=== PATIENT | female | born 1985 | race Caucasian/White ===

== ENCOUNTER → 2016-10-20 | Outpatient (CLI) | payer OTHER ==
--- NOTE | 2016-10-20 13:31 | MR ---
EXAMINATION TYPE: MR lumbar spine wo con DATE OF EXAM: 10/20/2016 11:40 AM COMPARISON: NONE HISTORY: low back pain, wraps around to rt hip TECHNIQUE: Multiplanar, multisequence images of the lumbar spine were acquired. L1-L2: Normal disc appearance without desiccation. No herniation, protrusion or disc bulging. No ca nal stenosis is present. Foramina are patent bilaterally. L2-L3: Normal disc appearance without desiccation. No herniation, protrusion or disc bulging. No ca nal stenosis is present. Foramina are patent bilaterally. L3-L4: Normal disc appearance without desiccation. No herniation, protrusion or disc bulging. No ca nal stenosis is present. Foramina are patent bilaterally. L4-L5: Normal disc appearance without desiccation. No herniation, protrusion or disc bulging. No ca nal stenosis is present. Foramina are patent bilaterally. L5-S1: Mild decreased signal and loss of height compatible with degenerative disc disease. Mild poste rocentral disc bulge. No herniation or central stenosis. Foramina are patent. Lumbar segments are intact. No paraspinal masses are identified. Conus medullaris has a normal appe arance. IMPRESSION: Mild disc desiccation and disc bulging at L5-S1.
== END | disposition home or self-care (01) ==
LOC: RADMRIMAIN 10:46
PROVIDERS: ATTEND Nurse Practitioner Women's Health
DX: M51.27 Other intervertebral disc displacement, lumbosacral region (principal); M79.2 Neuralgia and neuritis, unspecified
CPT/HCPCS: 72148

== ENCOUNTER → 2017-03-22 | Outpatient (CLI) | payer OTHER ==
--- NOTE | 2017-03-22 17:11 | NM ---
EXAMINATION TYPE: NM hepatobiliary w EF DATE OF EXAM: 03/22/2017 COMPARISON: NONE HISTORY: Right upper quadrant pain TECHNIQUE: After the intravenous administration of 5.11 mCi Tc 99m Mebrofenin hepatobiliary scintigra phy is performed. Immediate images post injection. FINDINGS: There is satisfactory initial accumulation of tracer by the liver. The gallbladder is visualized wit hin 10 minutes. The small bowel activity is noted within 42minutes. At one hour 8 ounces of oral en sure plus is given to mimic CCK and gallbladder ejection fraction is calculated at 38 %, in the bailee l range. Therefore there is no scintigraphic evidence of cystic or common bile duct obstruction to s uggest acute cholecystitis or gallbladder dyskinesia. IMPRESSION: Exam is within normal limits. Gallbladder ejection fraction at the level end of normal.
== END | disposition home or self-care (01) ==
LOC: RADNMMAIN 14:42
PROVIDERS: ATTEND Family Medicine
DX: R10.11 Right upper quadrant pain (principal)
CPT/HCPCS: 78226; A9537

== ENCOUNTER → 2017-05-10 | Outpatient (CLI) | payer BC, OTHER ==
[2017-05-10 15:22] LABS: HCT 38.5 % (34.0-46.0); HDW 2.25; HGB 13.1 gm/dL (11.4-16.0); MCH 30.9 pg (25.0-35.0); MCV 91.1 fL (80.0-100.0); Mean Platelet Volume 7.3; RBC 4.23 m/uL (3.80-5.40); RDW 12.6 % (11.5-15.5); WBC 5.6 k/uL (3.8-10.6)
[2017-05-10 16:00] LABS: ALT 21 U/L (9-52); AST 18 U/L (14-36); Alkaline Phosphatase 59 U/L (38-126); Anion Gap 12 mmol/L; Blood Urea Nitrogen 7 mg/dL (7-17); C Reactive Protein <5.0 mg/L (<10.0); Calcium 9.4 mg/dL (8.4-10.2); Carbon Dioxide 25 mmol/L (22-30); Chloride 105 mmol/L (98-107); Glucose 99 mg/dL (74-99); Non-African American GFR(MDRD) >60 (>60 ml/min/1.73 sqM); Potassium 3.9 mmol/L (3.5-5.1); Sodium 142 mmol/L (137-145); Total Bilirubin 0.4 mg/dL (0.2-1.3); Total Protein 6.9 g/dL (6.3-8.2)
[2017-05-10 16:15] LABS: Erythrocyte Sedimentation Rate 4 mm/hr (0-20)
[2017-05-10 20:46] LABS: Gliadin AB IgA, Deaminated NEGATIVE (NEGATIVE); Tis Transglutaminase IgA Unit <0.5 AI
[2017-05-10 20:51] LABS: Gliadin AB IgG, Deaminated NEGATIVE (NEGATIVE); Gliadin AB IgG, Unit <0.4 U/mL; Tis Transglutaminase IgG Unit <0.8 U/mL
== END | disposition home or self-care (01) ==
LOC: LABWHC1 14:47
PROVIDERS: ATTEND Internal Medicine Gastroenterology
DX: R19.4 Change in bowel habit (principal)
CPT/HCPCS: 36415; 80053; 83516; 85027; 85652; 86140

== ENCOUNTER 2017-05-24 09:12 | Day surgery (SDC) | payer BC, OTHER ==
[2017-05-22 16:59] VITALS: BMI 27.4
[~2017-05-24 09:12] MED LIST: LACTATED RINGERS 1,000 ML IV SCH
[2017-05-24 09:49] VITALS: RESP 16; TEMP 98.3
[2017-05-24] MEDS ORDERED: LIDOCAINE 1% 20 ML VIAL (10MG/ML) FOR IV START INTRADERMA ONE (09:50)
[2017-05-24] MEDS ORDERED: LIDOCAINE 1% INJ 10MG/ML (20 ML MDV) ONE (10:01)
[2017-05-24] MEDS ORDERED: PROPOFOL 10 MG/ML 20 ML VIAL IV ONE (10:01)
--- NOTE | 2017-05-24 11:09 | P.PCN ---
Date of Procedure: 05/24/17 Preoperative Diagnosis: Postoperative Diagnosis: Procedure(s) Performed: BRIEF HISTORY: Patient is a 32-year-old, pleasant, white female, scheduled for an upper endoscopy as a part of evaluation of intermittent epigastric and right upper quadrant abdominal pain for the last 1 year duration. Pain is almost on a daily basis and lasts for about 50 minutes and gradually resolves. She is hence scheduled for an upper endoscopy to evaluate further.. PROCEDURE PERFORMED: Esophagogastroduodenoscopy with biopsy. PREOPERATIVE DIAGNOSIS: Epigastric/right upper quadrant abdominal pain of one year duration. IV sedation per anesthesia. PROCEDURE: After informed consent was obtained, the patient was brought into the endoscopy unit. IV sedation was administered by Anesthesia under continuous monitoring. Initially the Olympus GIF-140 video endoscope was inserted into the mouth. Esophagus intubated without any difficulty. It was gradually advanced into the stomach and duodenum and carefully examined. The bulb and the second part of the duodenum appeared normal. The scope at this time was withdrawn to the stomach, adequately insufflated with air, and upon careful examination, mucosa of the antrum, had mild gastritis and biopsies were done from this area. The body, cardia and the fundus appeared normal. The scope was then withdrawn into the esophagus. The GE junction was located at 39 cm from the incisors. A 2 superficial erosions in the distal esophagus consistent with LA grade a reflux esophagitis. The rest of the esophagus appeared normal and the patient tolerated the procedure well. IMPRESSION: 1. Mild antral gastritis. 2. LA grade a reflux esophagitis. RECOMMENDATIONS: The findings of this examination were discussed with the patient as well as a family. She was advised to follow with the biopsy results. She'll be seen in the office in 3-4 weeks.. Implants: Indications for Procedure: Operative Findings: Description of Procedure:
[2017-05-24 11:10] VITALS: BP 115/66; PULSE 76
== END 2017-05-24 11:50 | disposition home or self-care (01) ==
LOC: ORWHC2ENDO 09:12
PROVIDERS: ATTEND Internal Medicine Gastroenterology
DX: K29.70 Gastritis, unspecified, without bleeding (principal); K21.0 Gastro-esophageal reflux disease with esophagitis; F17.200 Nicotine dependence, unspecified, uncomplicated; Z85.41 Personal history of malignant neoplasm of cervix uteri; Z79.899 Other long term (current) drug therapy
CPT/HCPCS: 81025; 88305; 43239; J2001; J2704

== ENCOUNTER 2018-05-06 06:00 | Day surgery (SDC) | payer BC ==
[2018-04-29 12:20] VITALS: BMI 26.5
--- NOTE | 2018-05-03 16:32 | P.HPOB ---
History of Present Illness H&P Date: 05/03/18 Chief Complaint: Menorrhagia Hanna is a 33-year-old female with very heavy menses. She is had heavy menses for a number of years but they have gotten significantly worse over the last 6-12 months. She relates that her bleeding is so bad that she often bleeds through tampons and a pad within 20 minutes. Ultrasound labs were obtained. She is interested in NovaSure. Risks and benefits of this procedure were discussed with the patient in detail including bleeding and infection as well as possible perforation need for other surgeries. We did offer is alternatives Mirena IUD but as she is a smoker over the age of 35 oral contraceptives would not be a very good choice. She has had her tubes tied and is therefore much more interested in a more permanent solution. She is therefore scheduled for D&C with hysteroscopy and NovaSure ablation. All questions are answered for her prior to proceeding to the operating room. Past Medical History Past Medical History: Cancer, Neurologic Disorder Additional Past Medical History / Comment(s): cervical ca, melanoma, hx palpitaions. hx migraines, diarrhea/constipation, History of Any Multi-Drug Resistant Organisms: None Reported Past Surgical History: Tubal Ligation Additional Past Surgical History / Comment(s): melonoma removed from cheek, LEEP /colposcopy, COLONOSCOPY, EGD Past Anesthesia/Blood Transfusion Reactions: No Reported Reaction Smoking Status: Current every day smoker - Past Family History Father Family Medical History: Cancer Additional Family Medical History / Comment(s): DAD IS AGE 62 Mother Family Medical History: Hypertension Medications and Allergies Home Medications Medication Instructions Recorded Confirmed Type No Known Home Medications 04/29/18 04/29/18 History Allergies Allergy/AdvReac Type Severity Reaction Status Date / Time No Known Allergies Allergy Verified 04/29/18 12:16 Exam Osteopathic Statement: *. No significant issues noted on an osteopathic structural exam other than those noted in the History and Physical/Consult. - OBG Physical Exam Breast: both: normal (no masses) Abdomen: bowel sounds normal, no diffuse tenderness, no bruit present, no guarding noted, no hepatomegaly, no splenomegaly, no mass Vulva: both: normal Vagina: normal moisture, no discharge Cervix: no lesion, no discharge Uterus: normal size, normal contour Adnexa: both: normal Anus/Rectum: normal perianal skin, no rectal mass, no hemorrhoids, heme negative
[~2018-05-06 06:00] MED LIST changes: +DEXAMETHASONE SOD PHOSPHATE 10 MG/ML 1 ML VIAL IV ONE; +HYDROmorphone 1 MG/ML 1 ML SYRINGE IVP PRN; +LIDOCAINE 1% 20 ML VIAL (10MG/ML) FOR IV START INTRADERMA PRN; +MIDAZOLAM 2 MG/2 ML VIAL IV PRN; +ONDANSETRON 4 MG/2 ML VIAL IVP ONE; +Pre Op ABX Message 1 EACH MISC MISCELLANE ONE; +SCOPOLAMINE 1.5MG/72HR PATCH TRANSDERM ONE
[2018-05-06] MEDS ORDERED: fentaNYL (PF) 50 MCG/ML 2 ML AMP ONE (07:26)
[2018-05-06] MEDS ORDERED: PROPOFOL 10 MG/ML 20 ML VIAL IV ONE (07:26)
[2018-05-06] MEDS ORDERED: LIDOCAINE 1% INJ 10MG/ML (20 ML MDV) ONE (07:26)
[2018-05-06] MEDS ORDERED: MIDAZOLAM 2 MG/2 ML VIAL ONE (07:26)
--- NOTE | 2018-05-06 07:52 | P.OP ---
Date of Procedure: 05/06/18 Preoperative Diagnosis: Menorrhagia Postoperative Diagnosis: Same Procedure(s) Performed: D&C with hysteroscopy and NovaSure ablation Anesthesia: EMY Surgeon: Vimal Shipman Estimated Blood Loss (ml): 3 Pathology: other (Uterine curettings) Condition: stable Disposition: same day Operative Findings: No gross pathology Description of Procedure: Patient was taken to the operating suite where a general anesthetic was found be adequate. She was prepped and draped in normal sterile fashion and placed in the dorsal lithotomy position. Initially a weighted speculum was inserted into the vagina and the anterior lip cervix identified and grasped with an Allis clamp. Cervix was then dilated and sounded to 8 cm. Once this was accomplished camera was inserted no gross pathology was noted therefore camera was removed and sharp curettings of endometrium were obtained. This tissue was collected and placed on Telfa then sent to pathology for evaluation. Once accomplished NovaSure systems inserted with length of 4 and a width of 4.5 the system was tested once it passes patency test, it was enabled. The burn lasted for 2 minutes. At the conclusion of the burn instrument was removed camera was reinserted with good burn noted. All instruments were then removed, sponge, lap , needle counts were all correct 2. Patient was then taken to the recovery room in stable and satisfactory condition. Plan - Discharge Summary New Discharge Prescriptions: New Ibuprofen [Motrin] 600 mg PO Q6HR PRN #30 tab PRN Reason: Pain Discharge Medication List Ibuprofen [Motrin] 600 mg PO Q6HR PRN #30 tab 05/06/18 [Rx] Follow up Appointment(s)/Referral(s): Vimal Shipman DO [Doctor of Osteopathic Medicine] - 2 Weeks Activity/Diet/Wound Care/Special Instructions: No heavy lifting, limit stairs and driving, and pelvic rest. If any high temperatures, heavy bleeding, or severe pain call my office Discharge Disposition: HOME SELF-CARE
[2018-05-06 08:06] VITALS: RESP 16; TEMP 97
[2018-05-06] MEDS ORDERED: KETOROLAC 30 MG/ML 1 ML VIAL IVP ONE (08:08)
[2018-05-06] MEDS: fentaNYL (PF) 50 MCG/ML 2 ML AMP IVP ONE ×2 (08:30→08:36)
[2018-05-06 09:17] VITALS: BP 104/66; PULSE 55
== END 2018-05-06 09:38 | disposition home or self-care (01) ==
LOC: OR 06:00
PROVIDERS: ATTEND Obstetrics & Gynecology
DX: N92.0 Excessive and frequent menstruation with regular cycle (principal); F17.210 Nicotine dependence, cigarettes, uncomplicated; Z85.41 Personal history of malignant neoplasm of cervix uteri; Z85.820 Personal history of malignant melanoma of skin; Z98.51 Tubal ligation status
CPT/HCPCS: 81025; 88305; 58563; J2250; J1100; J2405; J2001; J3010; J1885; J2704

== ENCOUNTER → 2018-05-23 | Outpatient (CLI) | payer BC ==
--- NOTE | 2018-05-23 09:07 | NM ---
Nuclear medicine hepatobiliary scan. HISTORY: Pain. DOSAGE: The patient received 8 ounces of ensure plus and 5.3 mCi of Technetium 99m Choletec. FINDINGS: There is normal hepatic extraction. The gallbladder is seen by 25 minutes. There is bilia ry to bowel clearance by 25 minutes. Ejection fraction is 63%. IMPRESSION: 1. Normal hepatobiliary exam
== END | disposition home or self-care (01) ==
LOC: RADNMMAIN 06:39
PROVIDERS: ATTEND Family Medicine
DX: R10.11 Right upper quadrant pain (principal)
CPT/HCPCS: 78226; A9537

== ENCOUNTER → 2019-03-10 | Outpatient (CLI) | payer BC ==
--- NOTE | 2019-03-10 12:05 | XR ---
Lumbosacral spine HISTORY: Low back pain 5 views of lumbosacral spine correlated to prior exam 10/04/2016 There is no significant interval change. No evident spondylolysis or spondylolisthesis. Lumbar verteb ral bodies show preserved height and bone mineralization. Loss of disc height again noted L5-S1, ther e is spondylosis at L4 and L5. Sclerosis of the posterior elements of L5-S1 compatible with facet art hropathy. IMPRESSION: Degenerative disc disease and facet arthropathy.
--- NOTE | 2019-03-10 12:49 | XR ---
Thoracic spine HISTORY: Pain 3 views of the thoracic spine Thoracic vertebral bodies show preserved height, alignment, and bone mineralization. Disc spaces are maintained. IMPRESSION: Normal thoracic spine.
== END | disposition home or self-care (01) ==
LOC: RADXRMAIN 10:17
PROVIDERS: ATTEND Family Medicine
DX: M51.37 Other intervertebral disc degeneration, lumbosacral region (principal); M46.97 Unspecified inflammatory spondylopathy, lumbosacral region
CPT/HCPCS: 72072; 72110

== ENCOUNTER → 2019-07-21 | Outpatient (CLI) | payer BC ==
--- NOTE | 2019-07-22 08:44 | XR ---
EXAMINATION TYPE: XR wrist complete RT DATE OF EXAM: 07/21/2019 COMPARISON: NONE HISTORY: Pain TECHNIQUE: Four views submitted. FINDINGS: The osseous structures are intact. The joint spaces are preserved and there is no acute fracture or dislocation. IMPRESSION: 1. No definite acute fracture or dislocation if symptoms persist, consider follow-up MRI.
--- NOTE | 2019-07-22 08:48 | XR ---
EXAMINATION TYPE: XR elbow complete RT DATE OF EXAM: 07/21/2019 COMPARISON: NONE HISTORY: Pain FINDINGS: Three views of the elbow demonstrate no pathologic joint effusion. The osseous structures are intact . There is no acute fracture or dislocation. IMPRESSION: 1. No acute fracture or dislocation. If symptoms persist follow-up study in 7 to 10 days could be ob tained.
--- NOTE | 2019-07-22 08:51 | XR ---
EXAMINATION TYPE: XR hand complete RT DATE OF EXAM: 07/21/2019 COMPARISON: NONE HISTORY: Pain TECHNIQUE: Three views are submitted. FINDINGS: The osseous structures are intact. The joint spaces are preserved and there is no acute fracture or dislocation. IMPRESSION: 1. No definite acute fracture or dislocation if symptoms persist, follow-up study in 7 to 10 days wo uld be suggested
== END | disposition home or self-care (01) ==
LOC: RADXRMAIN 13:26
PROVIDERS: ATTEND Nurse Practitioner Women's Health
DX: M79.621 Pain in right upper arm (principal); M25.531 Pain in right wrist; M25.521 Pain in right elbow

== ENCOUNTER → 2019-08-11 | Outpatient (CLI) | payer BC ==
--- NOTE | 2019-08-13 04:41 | MR ---
EXAMINATION TYPE: MR wrist RT wo con DATE OF EXAM: 08/11/2019 COMPARISON: Radiograph 07/21/2019 HISTORY: 34-year-old female with ulnar-sided Right wrist pain for a month TECHNIQUE: Multiplanar, multisequence images of the the right wrist were obtained without IV contrast . FINDINGS: There is focal heterogeneous thickening with fluid signal involving the dorsal scapholunate ligament. No abnormal widening of the scapholunate interval. Just distally from this region, there is a multil ocular ganglion cyst along the dorsum of the carpus measuring 8.5 mm craniocaudal by 2.9 mm wide by 8 mm AP. The lunotriquetral ligament is intact. Overall cartilage is maintained without evidence for bony erosions. There is a small amount of synovial proliferation noted proximal to the pisotriquetral joint along th e volar aspect of the ulnar wrist. The volar flexor tendons are within normal limits. There is a split tear involving the extensor carpi ulnaris with mild tenosynovial fluid. Otherwise, t he dorsal extensor tendons shows some probable physiologic fluid along the second compartment. Median nerve is normal caliber at 10 sq mm. The triangular fibrocartilage remains intact. However, there is some edematous change along the dorsa l radioulnar ligament. Distal radioulnar joint is intact. The visualized musculature and osseous structures are within normal limits. IMPRESSION: 1. Split tear involving the ECU with mild tenosynovitis. 2. Edematous change along the dorsal radioulnar ligament suggests a mild sprain. The TFC itself appea rs intact. 3. Findings suggest partial tear at the dorsal scapholunate ligament. 4. An 8.5 mm multilocular ganglion cyst along the dorsum of the carpus extends just distally to this region and may arise from this partial tear.
== END | disposition home or self-care (01) ==
LOC: RADMRIMAIN 12:04
PROVIDERS: ATTEND Family Medicine
DX: S66.319A Strain of extensor muscle, fascia and tendon of unspecified finger at wrist and hand level, initial encounter (principal); M67.431 Ganglion, right wrist; M65.841 Other synovitis and tenosynovitis, right hand

== ENCOUNTER → 2019-10-16 | Outpatient (CLI) | payer BC ==
--- NOTE | 2019-10-16 16:38 | MR ---
EXAMINATION TYPE: MR brain wo con DATE OF EXAM: 10/16/2019 COMPARISON: NONE HISTORY: Vertigo, headaches TECHNIQUE: Multiplanar, multisequence imaging of the brain and brainstem is performed without IV cont rast. FINDINGS: Diffusion weighted images demonstrate no evidence of a recent infarct or other diffusion abnormality. There is no extraaxial fluid collection or significant white matter signal abnormality. Mild CSF prom inence likely reflects symmetric superior frontal lobe atrophy. The ventricular system and cisternal spaces are otherwise normal in size and appearance. Midline structures demonstrate normal morphology. The craniocervical junction appears within normal limits. Normal vascular flow voids are present. The visualized sinuses are clear and the globes are i ntact. No suspicious fluid signal bilateral mastoid air cells. IMPRESSION: Mild superior cerebral atrophy incidentally seen otherwise unremarkable study.
== END | disposition home or self-care (01) ==
LOC: RADMRIMAIN 15:38
PROVIDERS: ATTEND Nurse Practitioner Women's Health
DX: H81.13 Benign paroxysmal vertigo, bilateral (principal); R51 Headache
CPT/HCPCS: 70551

== ENCOUNTER → 2020-06-07 | Outpatient (CLI) | payer BC ==
--- NOTE | 2020-06-07 16:03 | XR ---
Bilateral feet HISTORY: Bilateral foot pain 3 views of each foot are submitted. Bone mineralization, joint spaces and alignment are maintained. No fracture or dislocation bilaterall y. Minute plantar calcaneal spur present on the left. IMPRESSION: No significant abnormality
--- NOTE | 2020-06-07 16:05 | XR ---
Left femur HISTORY: Pain Frontal and lateral views of the left femur Surgical tubal ligation clip present in the left hemipelvis. Bone mineralization, joint spaces and al ignment are maintained. No fracture or dislocation. IMPRESSION: Normal left femur.
== END | disposition home or self-care (01) ==
LOC: RADXRMAIN 11:46
PROVIDERS: ATTEND Family Medicine
DX: M79.672 Pain in left foot (principal); M79.671 Pain in right foot; M79.652 Pain in left thigh

== ENCOUNTER → 2020-06-24 | Outpatient (CLI) | payer BC ==
[2020-06-24 13:12] LABS: Basophils % (A) 0 %; Eosinophils # (A) 0.1 k/uL (0-0.7); Eosinophils % (A) 1 %; HGB 14.6 gm/dL (11.4-16.0); Lymphocytes # (A) 1.6 k/uL (1.0-4.8); Lymphocytes % (A) 20 %; MCH 29.2 pg (25.0-35.0); MCHC 31.8 g/dL (31.0-37.0); Mean Platelet Volume 7.3; Monocytes # (A) 0.4 k/uL (0-1.0); Monocytes % (A) 5 %; Neutrophils # (A) 5.6 k/uL (1.3-7.7); Neutrophils % (A) 72 %; Platelet Count 286 k/uL (150-450); RDW 12.3 % (11.5-15.5); WBC 7.8 k/uL (3.8-10.6)
[2020-06-24 19:58] LABS: Erythrocyte Sedimentation Rate 3 mm/Hr (0-20)
[2020-06-24 20:34] LABS: C Reactive Protein <0.4 mg/dL (0.0-0.8); Rheumatoid Factor, Qnt 7 IU/mL (0-15); Uric Acid 5.2 mg/dL (2.9-7.7)
== END | disposition home or self-care (01) ==
LOC: LABWHC1 11:50
PROVIDERS: ATTEND Podiatrist Foot & Ankle Surgery
DX: M19.90 Unspecified osteoarthritis, unspecified site (principal); B99.9 Unspecified infectious disease
CPT/HCPCS: 36415; 84550; 85025; 85652; 86038; 86140; 86431

== ENCOUNTER → 2022-07-31 | Outpatient (CLI) | payer OTHER ==
--- NOTE | 2022-07-31 12:47 | US ---
EXAMINATION TYPE: US thyroid st tissue head/neck DATE OF EXAM: 07/31/2022 COMPARISON: NONE CLINICAL HISTORY: E04.9 NONTOXIC GOITER. Pt states physician felt neck enlarged on examination GLAND SIZE: Right Lobe: 4.2 x 1.1 x 1.5 cm Overall Parenchyma: homogenous Left Lobe: 4.8 x 1.3 x 2.0 cm Overall Parenchyma: homogeneous Isthmus Thickness: 0.3 cm NODULES RIGHT: # of nodules measured on right: 1 1. 0.7 X 0.4 x 0.6 cm, mid lateral, Prior size: No prior TIRADS Score: 3 TIRADS Category 3: Mildly Suspicious Composition: Solid or almost completely solid (2 points). Echogenicity: Hyperechoic or isoechoic (1 point). Shape: Wider than tall (0 points). Margin: Smooth (0 points). Echogenic foci: None or large comet-tail artifacts (0 points) Recommendation: If >2.5cm: FNA; If >1.5cm: Follow up at 1,3,5 years LEFT: # of nodules measured on left: 0 ISTHMUS: # of nodules measured in the isthmus: 0 Bilateral neck scanned, no evidence of lymphadenopathy. Sub-centimeter nodule right lobe. IMPRESSION: 2017 ACR TI-RADS LEVEL: TR-RADS 3 - Mildly Suspicious: Follow if > 1.5 cm, FNA if > 2.5 cm *Highest TI-RADS level nodule reported
== END | disposition home or self-care (01) ==
LOC: RADUSWWP 12:14
PROVIDERS: ATTEND Family Medicine
DX: E04.1 Nontoxic single thyroid nodule (principal)
CPT/HCPCS: 76536

== ENCOUNTER 2022-11-06 12:00 | Emergency (ER) | payer OTHER ==
[2022-11-06] MEDS ORDERED: DIPH,PERTUS(ACELL)TETVAC-LF 0.5 ML VIAL IM ONE (12:23)
[2022-11-06] MEDS ORDERED: LIDOCAINE 1% INJ 10MG/ML (30 ML VIAL-PF) SQ ONE (12:23)
--- NOTE | 2022-11-06 13:23 | ED ---
Wound/Laceration HPI - General Chief Complaint: Wound/Laceration Stated Complaint: Left hand laceration Time Seen by Provider: 11/06/22 12:13 Source: patient Mode of arrival: ambulatory Limitations: no limitations - History of Present Illness Initial Comments: Patient is a 29-year-old female presenting for left hand laceration. Patient has small hand laceration due to accidental cutting with razor blade. Reports minimal pain. No issues with range of motion. Last tetanus unknown - Related Data Previous Rx's Medication Instructions Recorded Ibuprofen [Motrin] 600 mg PO Q6HR PRN #30 tab 05/06/18 Allergies Allergy/AdvReac Type Severity Reaction Status Date / Time No Known Allergies Allergy Verified 04/29/18 12:16 Review of Systems ROS Statement: Those systems with pertinent positive or pertinent negative responses have been documented in the HPI. ROS Other: All systems not noted in ROS Statement are negative. Past Medical History Past Medical History: Cancer, Neurologic Disorder Additional Past Medical History / Comment(s): cervical ca, melanoma, hx palpitaions. hx migraines, diarrhea/constipation, History of Any Multi-Drug Resistant Organisms: None Reported Past Surgical History: Tubal Ligation, Uterine Ablation Additional Past Surgical History / Comment(s): melonoma removed from cheek, LEEP/colposcopy, COLONOSCOPY, EGD Past Anesthesia/Blood Transfusion Reactions: No Reported Reaction Past Psychological History: No Psychological Hx Reported Past Alcohol Use History: Rare Past Drug Use History: None Reported - Past Family History Father Family Medical History: Cancer Additional Family Medical History / Comment(s): DAD IS AGE 62 Mother Family Medical History: Hypertension General Exam Limitations: no limitations General appearance: alert Head exam: Present: atraumatic, normocephalic, normal inspection Eye exam: Present: normal appearance, PERRL, EOMI. Absent: scleral icterus, conjunctival injection, periorbital swelling Respiratory exam: Present: normal lung sounds bilaterally. Absent: respiratory distress, wheezes, rales, rhonchi, stridor Cardiovascular Exam: Present: regular rate, normal rhythm, normal heart sounds. Absent: systolic murmur, diastolic murmur, rubs, gallop, clicks Extremities exam: Present: other (0.5 cm lac proximal to left first MCP joint.full ROM. cap refill < 2) Neurological exam: Present: alert, oriented X3, CN II-XII intact Psychiatric exam: Present: normal affect, normal mood Course Vital Signs 11/06/22 11/06/22 12:10 13:43 Temperature 98 F 98.0 F Pulse Rate 98 73 Respiratory 16 17 Rate Blood Pressure 111/71 125/62 O2 Sat by Pulse 98 97 Oximetry Procedures - Laceration Laceration #1 Consent Obtained: verbal consent Indication: laceration Site: hand Description: linear Anesthetic Used: lidocaine 1% Anesthesia Technique: local infiltration Pre-repair: wound explored, irrigated extensively Type of Sutures: nylon Size of Sutures: 5-0 Number of Sutures: 2 Technique: simple, interrupted Patient Tolerated Procedure: well, no complications Medical Decision Making - Medical Decision Making Was pt. sent in by a medical professional or institution (, JESSICA, [employer], urgent care, hospital, or longterm...) When possible be specific @ -[No] Did you speak to anyone other than the patient for history (EMS, parent, family, police, friend...)? What history was obtained from this source @ -[No] Did you review nursing and triage notes (agree or disagree)? Why? @ -[I reviewed and agree with nursing and triage notes] Were old charts reviewed (outside hosp., previous admission, EMS record, old EKG, old radiological studies, urgent care reports/EKG's, longterm records)? Report findings @ -[No old charts were reviewed] Differential Diagnosis (chest pain, altered mental status, abdominal pain women, abdominal pain men, vaginal bleeding, weakness, fever, dyspnea, syncope, headache, dizziness, GI bleed, back pain, seizure, CVA, palpatations, mental health)? @ -[not applicable] EKG interpreted by me (3pts min.). @ -[As above] X-rays interpreted by me (1pt min.). @ -[None done] CT interpreted by me (1pt min.). @ -[None done] U/S interpreted by me (1pt. min.). @ -[None done] What testing was considered but not performed or refused? (CT, X-rays, U/S, labs)? Why? @ -[None] What meds were considered but not given or refused? Why? @ -[None] Did you discuss the management of the patient with other professionals (professionals i.e. Dr., PA, [employer], lab, RT, psych nurse, director social service, pool technician, teacher, electronic intelligence officer, director case)? Give summary @ -[No] Was smoking cessation discussed for >3mins.? @ -[No] Was critical care preformed (if so, how long)? @ -[No] Were there social determinants of health that impacted care today? How? (Homelessness, low income, unemployed, alcoholism, drug addiction, transportation, low edu. Level, literacy, decrease access to med. care, custodial, rehab)? @ -[No] Was there de-escalation of care discussed even if they declined (Discuss DNR or withdrawal of care, Hospice)? DNR status @ -[No] What co-morbidities impacted this encounter? (DM, HTN, Smoking, COPD, CAD, Cancer, CVA, ARF, Chemo, Hep., AIDS, mental health diagnosis, sleep apnea, morbid obesity)? @ -[None] Was patient admitted / discharged? Hospital course, mention meds given and route, prescriptions, significant lab abnormalities, going to OR and other pertinent info. @ -Discharged. Laceration repair, tetanus updated Undiagnosed new problem with uncertain prognosis? @ -[No] Drug Therapy requiring intensive monitoring for toxicity (Heparin, Nitro, Insulin, Cardizem)? @ -[No] Were any procedures done? @ -Yes, laceration repair Diagnosis/symptom? @ -Laceration Acute, or Chronic, or Acute on Chronic? @ -Acute Uncomplicated (without systemic symptoms) or Complicated (systemic symptoms)? @ -Uncomplicated Side effects of treatment? @ -[No] Exacerbation, Progression, or Severe Exacerbation? @ -[No] Poses a threat to life or bodily function? How? (Chest pain, USA, MS, pneumonia, PE, COPD, DKA, ARF, appy, cholecystitis, CVA, Diverticulitis, Homicidal, Suicidal, threat to staff... and all critical care pts) @ -[No] Dr. Lawrence is my attending Disposition Clinical Impression: Laceration Disposition: HOME SELF-CARE Condition: Good Instructions (If sedation given, give patient instructions): Care For Your Stitches (ED), Laceration (ED) Additional Instructions: Leave wound uncovered. Keep wound clean and dry. Wash with a mild soap. Take Tylenol or anti-inflammatories such as Motrin for pain. Follow-up with primary care provider in 1-2 days. Return for suture removal in 7-10 days. Report back to the emergency department if you experience new, concerning, or worsening symptoms. Is patient prescribed a controlled substance at d/c from ED?: No Referrals: Harvey Wills MD [Primary Care Provider] - 1-2 days
[2022-11-06 13:44] VITALS: BP 125/62; PULSE 73; RESP 17; TEMP 98
== END 2022-11-06 13:44 | disposition home or self-care (01) ==
LOC: EC 12:00
DX: S61.412A Laceration without foreign body of left hand, initial encounter (principal); Z23 Encounter for immunization; W26.8XXA Contact with other sharp object(s), not elsewhere classified, initial encounter
CPT/HCPCS: 90715; 12001; 99282; 90471; J2001

== ENCOUNTER → 2023-12-01 | Outpatient (CLI) | payer OTHER ==
--- NOTE | 2023-12-01 11:10 | XR ---
EXAMINATION TYPE: XR abdomen complete w decub DATE OF EXAM: 12/01/2023 10:37 AM CLINICAL INDICATION:Female, 38 years old with history of R10.2 PELVIC CRAMPING; COMPARISON: None. TECHNIQUE: Two views of the abdomen were obtained. FINDINGS: Mild to moderate amount stool throughout the colon. The bowel gas pattern is nonspecific wi thout dilated loops of small or large bowel. There is no evidence for organomegaly or pneumoperitoneu m. The osseous structures are intact. No abnormal calcifications are present. Fecal material and ga s are demonstrated throughout the colon and rectum. IMPRESSION: Mild to moderate stool burden throughout the colon. Nonspecific bowel gas pattern without radiographi c evidence for acute process.
== END | disposition home or self-care (01) ==
LOC: RADXRMAIN 10:10
PROVIDERS: ATTEND Nurse Practitioner Women's Health
DX: K31.89 Other diseases of stomach and duodenum (principal)
CPT/HCPCS: 74021

== ENCOUNTER → 2023-12-19 | Outpatient (CLI) | payer OTHER ==
--- NOTE | 2023-12-19 20:26 | US ---
EXAMINATION TYPE: US abdomen complete DATE OF EXAM: 12/19/2023 COMPARISON: NONE CLINICAL INDICATION: Female, 38 years old with history of R10.2 PELVIC AND PERINEAL PAIN; Lower abdom en/pelvic pain x 2 weeks TECHNIQUE: Multiple sonographic images of the abdomen are obtained. FINDINGS: EXAM MEASUREMENTS: Liver Length: 14.8 cm Gallbladder Wall: 0.3 cm CBD: 0.7 cm Spleen: 9.7 cm Right Kidney: 9.3 x 4.8 x 4.3 cm Left Kidney: 10.3 x 4.6 x 6.2 cm Pancreas: wnl Liver: Diffusely echogenic with some focal fatty sparing. Gallbladder: wnl Evidence for sonographic Flynn's sign: no CBD: Mildly dilated. Spleen: wnl Right Kidney: wnl Left Kidney: wnl Upper IVC: wnl Abd Aorta: wnl IMPRESSION: 1. Moderate to severe hepatic steatosis. Appropriate clinical management is advised. 2. The bile duct is mildly dilated. This may be chronic for the patient. Correlate with alkaline phos phatase and bilirubin levels to exclude biliary obstruction.
--- NOTE | 2023-12-20 07:56 | US ---
EXAMINATION TYPE: US pelvic complete DATE OF EXAM: 12/19/2023 COMPARISON: 08/01/2023 CLINICAL INDICATION: Female, 38 years old with history of R10.2 PELVIC AND PERINEAL PAIN; Ablation x 5 years ago; still has regular cycles with bleeding in-between. A0 TECHNIQUE: Transabdominal sonographic images of the pelvis were acquired. Transvaginal sonographi c images were medically necessary to better assess the following anatomy: Uterine fundus and endometr ium Date of LMP: 12/04/2023 EXAM MEASUREMENTS: Uterus: 6.3 x 3.8 x 4.0 cm Endometrial Stripe: 1.0 cm Right Ovary: 3.9 x 1.7 x 1.8 cm Left Ovary: 1.7 x 1.7 x 1.5 cm 1. Uterus: Anteverted. Hypoechoic/anechoic area at ML fundus = 1.2 x 1.5 x 0.9 2. Endometrium: Slightly heterogeneous measuring up to 1.0 cm. Tiny 4 mm cervical nabothian cyst sug gested. 3. Right Ovary: Hemorrhagic cyst = 1.9 x 1.5 x 1.4 cm 4. Left Ovary: wnl 5. Bilateral Adnexa: wnl 6. Posterior cul-de-sac: wnl IMPRESSION: 1. Despite history of previous ablation, the endometrial stripe is visualized, estimated at 1 cm thic k. 2. Hypoechoic/anechoic area at the midline uterine fundus measures 1.5 x 1.2 x 0.9 cm. The high midli ne location makes focal hematometra unlikely. Consider focal fibroid or adenomyoma as some additional considerations. 3. Suspected A1 0.9 cm hemorrhagic cyst of the right ovary. Follow-up in 6-8 weeks to assess for invo lution.
== END | disposition home or self-care (01) ==
LOC: RADUSWWP 06:50
PROVIDERS: ATTEND Family Medicine
DX: K76.0 Fatty (change of) liver, not elsewhere classified (principal); K83.8 Other specified diseases of biliary tract; N85.8 Other specified noninflammatory disorders of uterus; N92.0 Excessive and frequent menstruation with regular cycle
CPT/HCPCS: 76700; 76830; 76856